=== PATIENT | female | born 1990 | race Caucasian/White ===

== ENCOUNTER 2016-10-26 01:08 | Emergency (ER) | payer OTHER, SELFPAY ==
--- NOTE | 2016-10-26 02:50 | REPUSA ---
CT INTERNAL AUDITORY CANALS CLINICAL HISTORY: Suspected mastoiditis. TECHNIQUE: Multiple axial CT images were obtained through temporal bones without IV contrast material . COMMENTS: The auditory ossicles are within normal limits without evidence of erosion or destruction. There is n o evidence of erosion of the scutum to suggested cholesteatoma. The mastoid air cells and Korner's se ptum appear intact. There is no evidence of fluid. The auditus and antrum are within normal limits. IMPRESSION: Unremarkable, clear mastoid air cells.
[2016-10-26] MEDS ORDERED: CIPROFLOXACIN 500 MG TAB As Ordered ONE (03:16)
--- NOTE | 2016-10-26 03:26 | EDDOCDS ---
Physician Documentation [facility] Name: Susie Barrett Age: 25 yrs Sex: Female : 1990 Arrival Date: 10/26/2016 Time: 01:08 Bed 11 Private MD: Disposition: 10/26/16 03:14 Discharged to Home/Self Care. Impression: Otitis media, unspecified, right ear. - Condition is Stable. - Prescriptions for Cipro 500 mg Oral Tablet - take 1 tablet by ORAL route every 12 hours; 14 tablet. - Medication Reconciliation, Local Pharmacy Hours form. - Follow up: Private Physician; When: Call to arrange an appointment; Reason: Recheck today's complaints. - Problem is new. - Symptoms have improved. Historical: - Allergies: PENICILLINS (Anaphylaxis); Haldol (seizures); - Home Meds: 1. none - PMHx: Anxiety Disorder; - PSHx: D & C; left arm x2; wisdom teeth; Appendectomy; - Social history: Smoking status: Patient uses tobacco products, current every day smoker. No barriers to communication noted, The patient speaks fluent Mexican, Speaks appropriately for age. - Family history: No immediate family members are acutely ill. - : The pt / caregiver states he / she is not on anticoagulants. Home medication list is obtained from the patient. - Exposure Risk Screening:: None identified. 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 4 in. (162.56 cm); Pain 6/10; 01:17 Body Mass Index 28.15 (74.39 kg, 162.56 cm) ko2 MDM: 02:03 Misc Cognos Report Developer Order ordered. cs11 02:14 Misc Cognos Report Developer Order complete. ml3 02:15 CT IAC W/O CONTRAST Ordered. EDMS 02:39 Financial registration complete. hs2 02:58 [facility] Payment Agreement was scanned into [employer] and attached to record. hs2 03:13 Ciprofloxacin 500 mg PO once ordered. cs11 Administered Medications: 03:21 Drug: Ciprofloxacin 500 mg [ciprofloxacin 500 mg tablet (1 tabs)] Route: PO; nn1 Signatures: Dispatcher [employer] ED Tuyet, MayVijayaElis, Maintenance Painter Apprentice Unit ml3 Abdoulaye Alarcon, DO cs11 Brynn Armenta RN RN ko2 Jean Carlos French RN RN nn1 Gwendolyn Hopson, Reg Reg hs2 The chart was reviewed and I authenticate all verbal orders and agree with the evaluation and treatment provided.Attachments: 02:58 [facility] Payment Agreement hs2 MTDD
--- NOTE | 2016-10-26 03:26 | EDDOCDS ---
Nurse's Notes [facility] Name: Susie Barrett Age: 25 yrs Sex: Female : 1990 Arrival Date: 10/26/2016 Time: 01:08 Bed 11 Private MD: Diagnosis: Otitis media, unspecified, right ear Presentation: 10/26 01:11 Presenting complaint: Patient states: weird symptoms the last week. Started with a ko2 tingling feeling in back of throat with trouble swallowing and a bump behind right ear. dizziness started today that makes her sick to stomach. Glands in throat hurt mainly on the left side as well as both ears hurt. Abdominal pain on left side. Pt states most pain is on the left side. As well as her feet are numb and cold. Suicide/Homicide risk assessment- the patient denies having any suicidal and/or homicidal ideations and does not present with any other emotional, behavioral or mental health complaints. 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 Transition of care: patient was not received from another setting of care. 01:11 Acuity: ÁNGEL Level 3 ko2 01:11 Method Of Arrival: Walkin/Carried/Asstd ko2 02:09 Adult Sepsis Screening: The patient does not have new or worsening altered mentation. nn1 Patient's respiratory rate is less than 22. Systolic blood pressure is greater than 100. Patient has a qSOFA score of 0- Negative Sepsis Screen. Triage Assessment: 01:17 General: Appears in no apparent distress. Pain: Location: head, neck and abdomen Pain ko2 currently is 6 out of 10 on a pain scale. HIV screening NA for this visit Offered previously. Neurological: Level of Consciousness is awake, alert. Respiratory: Airway is patent Respiratory effort is even, unlabored. Derm: Skin is normal. 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 none - PMHx: Anxiety Disorder; - PSHx: D & C; left arm x2; wisdom teeth; Appendectomy; - Social history: Smoking status: Patient uses tobacco products, current every day smoker. No barriers to communication noted, The patient speaks fluent Algerian, Speaks appropriately for age. - Family history: No immediate family members are acutely ill. - : The pt / caregiver states he / she is not on anticoagulants. Home medication list is obtained from the patient. - Exposure Risk Screening:: None identified. Screenin:23 Screening information is obtained from the patient. Fall risk: No risks identified. nn1 Assistance ADL's: requires no assistance with activities of daily living. Abuse/DV Screen: The patient / caregiver reports he/she is: not in a situation that causes fear, pain or injury. Nutritional screening: No deficits noted. Advance Directives: There is no active DNR order. home support is adequate. Assessment: 02:06 General: Appears in no apparent distress, comfortable, Behavior is appropriate for age, nn1 cooperative. Pain: Location: neck and head. Neurological: Level of Consciousness is awake, alert, obeys commands, Oriented to person, place, time. EENT: Throat is pink with gag reflex present, Reports Bilateral ear pain that radiates to the neck and into the throat. Reports sore throat causing difficulty swallowing. No drooling or speech deficits noted. . Respiratory: Airway is patent Respiratory effort is even, unlabored, Respiratory pattern is regular, symmetrical. GI: Abdomen is non- distended Bowel sounds present X 4 quads. Abd is soft and non tender X 4 quads. Reports nausea, vomiting. Derm: Skin is pink, warm & dry. 02:10 Pain: Pain currently is 6 out of 10 on a pain scale. Neurological: Reports dizziness, nn1 headache. 03:21 General: Appears in no apparent distress, comfortable, Behavior is appropriate for age, nn1 cooperative. Pain: Location: neck and head Pain currently is 6 out of 10 on a pain scale. Neurological: Level of Consciousness is awake, alert, obeys commands, Oriented to person, place, time. Respiratory: Airway is patent Respiratory effort is even, unlabored, Respiratory pattern is regular, symmetrical. Derm: Skin is pink, warm & dry. Vital Signs: 01:17 BP 138 / 82; Pulse 99; Resp 16; Temp 98.9; Pulse Ox 97% ; Weight 74.39 kg; Height 5 ft. ko2 4 in. (162.56 cm); Pain 6/10; 01:17 Body Mass Index 28.15 (74.39 kg, 162.56 cm) ko2 Vitals: 01:17 Log In Time: October 26, 2016 at 01:08. ko2 ED Course: 01:09 Patient visited by Fabián Bear, Reg. pm4 01:09 Patient moved to Waiting pm4 01:10 Patient moved to Triage 1 ko2 01:14 Triage Initiated ko2 01:22 Cary Faulkner RN is Primary Nurse. ko2 01:22 Patient moved to 11 ko2 01:27 Abdoulaye Alarcon DO is Attending Physician. cs11 01:27 Patient visited by Abdoulaye Alarcon DO. cs11 02:06 Patient visited by Jean Carlos French RN. nn1 02:58 [facility] Payment Agreement was scanned into [employer] and attached to record. hs2 02:59 CT IAC W/O CONTRAST Returned. EDMS 03:05 Patient name changed from Susie\S\L\S\Barrett\S\ to Susie\S\Verna\S\Barrett. EDMS 03:18 Primary Nurse role handed off by Cary Faulkner RN kb5 03:18 Patient visited by Chris Aviles PCA. kb5 03:24 The patient / caregiver is instructed regarding the plan of care and ED course. nn1 03:24 No IV's were initiated during this patient's visit. No procedures done that require nn1 assistance. Administered Medications: 03:21 Drug: Ciprofloxacin 500 mg [ciprofloxacin 500 mg tablet (1 tabs)] Route: PO; nn1 Order Results: Radiology Order: CT IAC W/O CONTRAST Test: CT IAC W/O CONTRAST REASON FOR EXAMINATION: R/O MASTOIDITIS; ; CT INTERNAL AUDITORY CANALS; CLINICAL HISTORY: Suspected mastoiditis.; TECHNIQUE: Multiple axial CT images were obtained through temporal bones without IV contrast material; .; COMMENTS:; The auditory ossicles are within normal limits without evidence of erosion or destruction. There is n; o evidence of erosion of the scutum to suggested cholesteatoma. The mastoid air cells and Korner's se; ptum appear intact. There is no evidence of fluid. The auditus and antrum are within normal limits.; IMPRESSION:; Unremarkable, clear mastoid air cells.; ; Outcome: 03:14 Discharge ordered by Provider. cs11 03:23 Discharge Assessment: Patient awake, alert and oriented x 3. No cognitive and/or nn1 functional deficits noted. Patient verbalized understanding of disposition instructions. patient administered narcotics - no. The following High Risk Discharge criteria are identified: None. Discharged to home ambulatory, with friend. Condition: stable Condition: improved. CT Study completed. Property :Personal belongings accompany Pt. 03:25 Patient left the ED. nn1 Signatures: Dispatcher [employer] EDMS Chris Aviles, CORRECTIONAL CASE MANAGER CORRECTIONAL CASE MANAGER kb5 Abdoulaye Alarcon DO DO cs11 Brynn Armenta,RN RN ko2 Jean Carlos FrenchRN RN nn1 Gwendolyn Hopson, Reg Reg hs2 Fabián Bear, Reg Reg pm4 MTDD
--- NOTE | 2016-10-28 04:26 | EDDOCDS ---
Physician Documentation [facility] Name: Susie Barrett Age: 25 yrs Sex: Female : 1990 Arrival Date: 10/26/2016 Time: 01:08 Bed 11 Private MD: Disposition: 10/26/16 03:14 Discharged to Home/Self Care. Impression: Otitis media, unspecified, right ear. - Condition is Stable. - Prescriptions for Cipro 500 mg Oral Tablet - take 1 tablet by ORAL route every 12 hours; 14 tablet. - Medication Reconciliation, Local Pharmacy Hours form. - Follow up: Private Physician; When: Call to arrange an appointment; Reason: Recheck today's complaints. - Problem is new. - Symptoms have improved. Historical: - Allergies: PENICILLINS (Anaphylaxis); Haldol (seizures); - Home Meds: 1. none - PMHx: Anxiety Disorder; - PSHx: D & C; left arm x2; wisdom teeth; Appendectomy; - Social history: Smoking status: Patient uses tobacco products, current every day smoker. No barriers to communication noted, The patient speaks fluent Ghanaian, Speaks appropriately for age. - Family history: No immediate family members are acutely ill. - : The pt / caregiver states he / she is not on anticoagulants. Home medication list is obtained from the patient. - Exposure Risk Screening:: None identified. 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 4 in. (162.56 cm); Pain 6/10; 03:25 BP 134 / 69; Pulse 84; Resp 18; Temp 100(O); Pulse Ox 98% on R/A; Pain 6/10; nn1 01:17 Body Mass Index 28.15 (74.39 kg, 162.56 cm) ko2 MDM: 02:03 Misc Bale Opener Order ordered. cs11 02:14 Misc Bale Opener Order complete. ml3 02:15 CT IAC W/O CONTRAST Ordered. EDMS 02:39 Financial registration complete. hs2 02:58 [facility] Payment Agreement was scanned into [employer] and attached to record. hs2 03:13 Ciprofloxacin 500 mg PO once ordered. cs11 10/27 13:08 T-Sheet-- Draft Copy was scanned into [employer] and attached to record. gb Administered Medications: 10/26 03:21 Drug: Ciprofloxacin 500 mg [ciprofloxacin 500 mg tablet (1 tabs)] Route: PO; nn1 Signatures: Dispatcher [employer] EDMS Rachele Paulino, Reg Reg gb Jordan Benz, Business Continuity Global Director Unit ml3 Abdoulaye Alarcon, DO cs11 Brynn Armenta,RN RN ko2 Jean Carlos French RN RN nn1 Gwendolyn Hopson, Reg Reg hs2 The chart was reviewed and I authenticate all verbal orders and agree with the evaluation and treatment provided.Attachments: 02:58 [facility] Payment Agreement hs2 10/27 13:08 T-Sheet-- Draft Copy gb Chart Complete MTDD
--- NOTE | 2016-10-28 04:26 | EDDOCDS ---
Nurse's Notes [facility] Name: Susie Barrett Age: 25 yrs Sex: Female : 1990 Arrival Date: 10/26/2016 Time: 01:08 Bed 11 Private MD: Diagnosis: Otitis media, unspecified, right ear Presentation: 10/26 01:11 Presenting complaint: Patient states: weird symptoms the last week. Started with a ko2 tingling feeling in back of throat with trouble swallowing and a bump behind right ear. dizziness started today that makes her sick to stomach. Glands in throat hurt mainly on the left side as well as both ears hurt. Abdominal pain on left side. Pt states most pain is on the left side. As well as her feet are numb and cold. Suicide/Homicide risk assessment- the patient denies having any suicidal and/or homicidal ideations and does not present with any other emotional, behavioral or mental health complaints. Status: Patient is not a tax services manager or dependent. Transition of care: patient was not received from another setting of care. 01:11 Acuity: ÁNGEL Level 3 ko2 01:11 Method Of Arrival: Walkin/Carried/Asstd ko2 02:09 Adult Sepsis Screening: The patient does not have new or worsening altered mentation. nn1 Patient's respiratory rate is less than 22. Systolic blood pressure is greater than 100. Patient has a qSOFA score of 0- Negative Sepsis Screen. Triage Assessment: 01:17 General: Appears in no apparent distress. Pain: Location: head, neck and abdomen Pain ko2 currently is 6 out of 10 on a pain scale. HIV screening NA for this visit Offered previously. Neurological: Level of Consciousness is awake, alert. Respiratory: Airway is patent Respiratory effort is even, unlabored. Derm: Skin is normal. 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 none - PMHx: Anxiety Disorder; - PSHx: D & C; left arm x2; wisdom teeth; Appendectomy; - Social history: Smoking status: Patient uses tobacco products, current every day smoker. No barriers to communication noted, The patient speaks fluent South Korean, Speaks appropriately for age. - Family history: No immediate family members are acutely ill. - : The pt / caregiver states he / she is not on anticoagulants. Home medication list is obtained from the patient. - Exposure Risk Screening:: None identified. Screenin:23 Screening information is obtained from the patient. Fall risk: No risks identified. nn1 Assistance ADL's: requires no assistance with activities of daily living. Abuse/DV Screen: The patient / caregiver reports he/she is: not in a situation that causes fear, pain or injury. Nutritional screening: No deficits noted. Advance Directives: There is no active DNR order. home support is adequate. Assessment: 02:06 General: Appears in no apparent distress, comfortable, Behavior is appropriate for age, nn1 cooperative. Pain: Location: neck and head. Neurological: Level of Consciousness is awake, alert, obeys commands, Oriented to person, place, time. EENT: Throat is pink with gag reflex present, Reports Bilateral ear pain that radiates to the neck and into the throat. Reports sore throat causing difficulty swallowing. No drooling or speech deficits noted. . Respiratory: Airway is patent Respiratory effort is even, unlabored, Respiratory pattern is regular, symmetrical. GI: Abdomen is non- distended Bowel sounds present X 4 quads. Abd is soft and non tender X 4 quads. Reports nausea, vomiting. Derm: Skin is pink, warm & dry. 02:10 Pain: Pain currently is 6 out of 10 on a pain scale. Neurological: Reports dizziness, nn1 headache. 03:21 General: Appears in no apparent distress, comfortable, Behavior is appropriate for age, nn1 cooperative. Pain: Location: neck and head Pain currently is 6 out of 10 on a pain scale. Neurological: Level of Consciousness is awake, alert, obeys commands, Oriented to person, place, time. Respiratory: Airway is patent Respiratory effort is even, unlabored, Respiratory pattern is regular, symmetrical. Derm: Skin is pink, warm & dry. Vital Signs: 01:17 BP 138 / 82; Pulse 99; Resp 16; Temp 98.9; Pulse Ox 97% ; Weight 74.39 kg; Height 5 ft. ko2 4 in. (162.56 cm); Pain 6/10; 03:25 BP 134 / 69; Pulse 84; Resp 18; Temp 100(O); Pulse Ox 98% on R/A; Pain 6/10; nn1 01:17 Body Mass Index 28.15 (74.39 kg, 162.56 cm) ko Vitals: 01:17 Log In Time: October 26, 2016 at 01:08. ko2 ED Course: 01:09 Patient visited by Fabián Bear Reg. pm4 01:09 Patient moved to Waiting pm4 01:10 Patient moved to Triage 1 ko2 01:14 Triage Initiated ko2 01:22 Cary Faulkner RN is Primary Nurse. ko2 01:22 Patient moved to 11 ko2 01:27 Abdoulaye Alarcon DO is Attending Physician. cs11 01:27 Patient visited by Abdoulaye Alarcon DO. cs11 02:06 Patient visited by Jean Carlos French RN. nn1 02:58 [facility] Payment Agreement was scanned into [employer] and attached to record. hs2 02:59 CT IAC W/O CONTRAST Returned. EDMS 03:05 Patient name changed from Susie\S\L\S\Barrett\S\ to Susie\S\Verna\S\Barrett. EDMS 03:18 Primary Nurse role handed off by Cary Faulkner RN kb5 03:18 Patient visited by Chris Aviles PCA. kb5 03:24 The patient / caregiver is instructed regarding the plan of care and ED course. nn1 03:24 No IV's were initiated during this patient's visit. No procedures done that require nn1 assistance. 10/27 13:08 T-Sheet-- Draft Copy was scanned into [employer] and attached to record. gb Administered Medications: 10/26 03:21 Drug: Ciprofloxacin 500 mg [ciprofloxacin 500 mg tablet (1 tabs)] Route: PO; nn1 Order Results: Radiology Order: CT IAC W/O CONTRAST Test: CT IAC W/O CONTRAST REASON FOR EXAMINATION: R/O MASTOIDITIS; ; CT INTERNAL AUDITORY CANALS; CLINICAL HISTORY: Suspected mastoiditis.; TECHNIQUE: Multiple axial CT images were obtained through temporal bones without IV contrast material; .; COMMENTS:; The auditory ossicles are within normal limits without evidence of erosion or destruction. There is n; o evidence of erosion of the scutum to suggested cholesteatoma. The mastoid air cells and Korner's se; ptum appear intact. There is no evidence of fluid. The auditus and antrum are within normal limits.; IMPRESSION:; Unremarkable, clear mastoid air cells.; ; Outcome: 03:14 Discharge ordered by Provider. cs11 03:23 Discharge Assessment: Patient awake, alert and oriented x 3. No cognitive and/or nn1 functional deficits noted. Patient verbalized understanding of disposition instructions. patient administered narcotics - no. The following High Risk Discharge criteria are identified: None. Discharged to home ambulatory, with friend. Condition: stable Condition: improved. CT Study completed. Property :Personal belongings accompany Pt. 03:25 Patient left the ED. nn1 Signatures: Dispatcher [employer] EDMS Rachele Paulino, Reg Reg gb Chris Aviles, SALES AND SERVICE REPRESENTATIVE SALES AND SERVICE REPRESENTATIVE kb5 Abdoulaye Alarcon, DO DO cs11 Brynn ArmentaRN RN ko2 Jean Carlos FrenchRN RN nn1 Gwendolyn Hopson, Reg Reg hs2 Fabián Bear, Reg Reg pm4 Chart Complete [facility]
--- NOTE | 2016-10-28 04:26 | EDDOCDS ---
Physician Documentation [facility] Name: Susie Barrett Age: 25 yrs Sex: Female : 1990 Arrival Date: 10/26/2016 Time: 01:08 Bed 11 Private MD: Disposition: 10/26/16 03:14 Discharged to Home/Self Care. Impression: Otitis media, unspecified, right ear. - Condition is Stable. - Prescriptions for Cipro 500 mg Oral Tablet - take 1 tablet by ORAL route every 12 hours; 14 tablet. - Medication Reconciliation, Local Pharmacy Hours form. - Follow up: Private Physician; When: Call to arrange an appointment; Reason: Recheck today's complaints. - Problem is new. - Symptoms have improved. Historical: - Allergies: PENICILLINS (Anaphylaxis); Haldol (seizures); - Home Meds: 1. none - PMHx: Anxiety Disorder; - PSHx: D & C; left arm x2; wisdom teeth; Appendectomy; - Social history: Smoking status: Patient uses tobacco products, current every day smoker. No barriers to communication noted, The patient speaks fluent Djiboutian, Speaks appropriately for age. - Family history: No immediate family members are acutely ill. - : The pt / caregiver states he / she is not on anticoagulants. Home medication list is obtained from the patient. - Exposure Risk Screening:: None identified. 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 4 in. (162.56 cm); Pain 6/10; 03:25 BP 134 / 69; Pulse 84; Resp 18; Temp 100(O); Pulse Ox 98% on R/A; Pain 6/10; nn1 01:17 Body Mass Index 28.15 (74.39 kg, 162.56 cm) ko2 MDM: 02:03 Misc Sourcing Coordinator Order ordered. cs11 02:14 Misc Sourcing Coordinator Order complete. ml3 02:15 CT IAC W/O CONTRAST Ordered. EDMS 02:39 Financial registration complete. hs2 02:58 [facility] Payment Agreement was scanned into [employer] and attached to record. hs2 03:13 Ciprofloxacin 500 mg PO once ordered. cs11 10/27 13:08 T-Sheet-- Draft Copy was scanned into [employer] and attached to record. gb Administered Medications: 10/26 03:21 Drug: Ciprofloxacin 500 mg [ciprofloxacin 500 mg tablet (1 tabs)] Route: PO; nn1 Signatures: Dispatcher [employer] EDMS Rachele Paulino, Reg Reg gb Jordan Benz, Book Solicitor Unit ml3 Abdoulaye Alarcon, DO cs11 Brynn Armenta,RN RN ko2 Jean Carlos French RN RN nn1 Gwendolyn Hopson, Reg Reg hs2 The chart was reviewed and I authenticate all verbal orders and agree with the evaluation and treatment provided.Attachments: 02:58 [facility] Payment Agreement hs2 10/27 13:08 T-Sheet-- Draft Copy gb Chart Complete MTDD
== END 2016-10-26 03:25 | disposition home or self-care (01) ==
LOC: M ED 01:08
DX: H66.91 Otitis media, unspecified, right ear (principal); F41.9 Anxiety disorder, unspecified; F17.200 Nicotine dependence, unspecified, uncomplicated; Z88.0 Allergy status to penicillin; Z88.8 Allergy status to other drugs, medicaments and biological substances

== ENCOUNTER 2017-10-20 19:17 | Emergency (ER) | payer MEDICAID, OTHER, SELFPAY ==
[2017-10-20] MEDS: NS 1,000 ML IV (20:15)
[2017-10-20] MEDS: GI COCKTAIL 50ML BTL(HYOSCYAMINE/MAALOX/LIDOCAINE VISCOUS)(1:3:1) PO (20:15)
[2017-10-20] MEDS: METOCLOPRAMIDE INJ 10MG/2ML VIAL (J2765) IV (20:15)
[2017-10-20 20:30] LABS: AMORPHOUS SEDIMENT RFX SMALL (NEGATIVE); KETONE, URINE AUTO RFX TRACE mg/dL (NEGATIVE); LEUKOCYTE ESTERASE UR AUTO RFX NEGATIVE (NEGATIVE); MUCUS, URINE RFX LARGE (NEGATIVE); NITRITE, URINE AUTO RFX NEGATIVE (NEGATIVE); RBC, URINE AUTO RFX 5 /HPF (0-3); SPECIFIC GRAVITY UR AUTO RFX 1.027 (1.002-1.035); SQUAM EPITHELIAL CELL UR AURFX 2 /HPF (0-6); WBC, URINE AUTO RFX 1 /HPF (0-3)
[2017-10-20] MEDS ORDERED: GASTROGRAFIN SOLUTION 30ML (Q9963) As Ordered (20:55)
[2017-10-20 20:58] LABS: BASO % 0.3 % (0.0-1.0); EOS # 0.1 10^3/uL (0.0-0.50); EOS % 1.5 % (0.0-3.0); HEMATOCRIT 38.8 % (36.0-47.0); HEMOGLOBIN 13.7 g/dl (12.0-16.0); IMMATURE GRANULOCYTE % 0.2 % (0-3.0); LYMPH # 1.6 10^3/uL (1.5-6.5); LYMPH % 18.2 % (24.0-44.0); MEAN CORPUSCULAR HEMOGLOBIN 31.5 pg (27.0-33.0); MEAN CORPUSCULAR HGB CONC 35.3 g/dl (32.0-36.5); MEAN CORPUSCULAR VOLUME 89.2 fl (80.0-96.0); MONO # 0.6 10^3/uL (0.0-0.8); MONO % 6.9 % (0.0-5.0); NEUTROPHILS # 6.3 10^3/uL (1.8-7.7); NEUTROPHILS % 72.9 % (36.0-66.0); PLATELET COUNT, AUTOMATED 308 10^3/uL (150-450); RED BLOOD COUNT 4.35 10^6/uL (4.00-5.40); RED CELL DISTRIBUTION WIDTH 11.9 % (11.5-14.5); WHITE BLOOD COUNT 8.7 10^3/uL (4.0-10.0)
[2017-10-20] MEDS: GASTROGRAFIN SOLUTION 30ML PO ×2 (21:00→21:30)
[2017-10-20 21:25] LABS: ALBUMIN 4.1 GM/DL (3.2-5.2); ALBUMIN/GLOBULIN RATIO 1.17 (1.00-1.93); ALKALINE PHOSPHATASE 69 U/L (45-117); ALT/SGPT 18 U/L (12-78); AMYLASE 60 U/L (25-115); ANION GAP 4 MEQ/L (8-16); AST/SGOT 12 U/L (7-37); BILIRUBIN,DIRECT 0.1 MG/DL (0.0-0.2); BILIRUBIN,TOTAL 0.5 MG/DL (0.2-1.0); BLOOD UREA NITROGEN 14 MG/DL (7-18); C REACTIVE PROTEIN QUANTITATIV 0.61 MG/DL (0.00-0.30); CALCIUM LEVEL 9.3 MG/DL (8.5-10.1); CARBON DIOXIDE LEVEL 30 MEQ/L (21-32); CHLORIDE LEVEL 107 MEQ/L (98-107); CREATININE FOR GFR 0.78 MG/DL (0.55-1.30); GAMMA GLUTAMYLTRANSPEPTIDASE 27 U/L (5-55); GLOMERULAR FILTRATION RATE > 60.0 (>60); GLUCOSE, FASTING 107 MG/DL (70-100); LIPASE 123 U/L (73-393); POTASSIUM SERUM 3.7 MEQ/L (3.5-5.1); SODIUM LEVEL 141 MEQ/L (136-145); TOTAL PROTEIN 7.6 GM/DL (6.4-8.2)
[2017-10-20] MEDS ORDERED: ISOVUE-370 76% 100ML VIAL (Q9967) As Ordered (22:16)
== END 2017-10-21 00:15 | disposition home or self-care (01) ==
LOC: M ED 10-21 00:15
DX: R10.10 Upper abdominal pain, unspecified (principal); R11.2 Nausea with vomiting, unspecified; F41.9 Anxiety disorder, unspecified; F17.200 Nicotine dependence, unspecified, uncomplicated; Z79.899 Other long term (current) drug therapy; Z91.030 Bee allergy status; Z88.0 Allergy status to penicillin; Z88.8 Allergy status to other drugs, medicaments and biological substances
CPT/HCPCS: Q9967

== ENCOUNTER 2018-04-12 01:04 | Emergency (ER) | payer MEDICAID, OTHER, SELFPAY | END 2018-04-12 03:08 | disposition left against medical advice (07) | LOC: M ED 01:04 | DX: J02.9 Acute pharyngitis, unspecified (principal); Z72.0 Tobacco use; Z53.21 Procedure and treatment not carried out due to patient leaving prior to being seen by health care provider; Z79.899 Other long term (current) drug therapy; Z91.030 Bee allergy status; Z88.0 Allergy status to penicillin; Z88.8 Allergy status to other drugs, medicaments and biological substances | CPT/HCPCS: 87880 ==

== ENCOUNTER 2018-08-31 17:06 | Emergency (ER) | payer OTHER, MEDICAID ==
[2018-08-31 18:26] LABS: BASO % 0.5 % (0.0-1.0); EOS # 0.1 10^3/uL (0.0-0.50); EOS % 1.1 % (0.0-3.0); HEMATOCRIT 39.3 % (36.0-47.0); IMMATURE GRANULOCYTE % 0.3 % (0-3.0); LYMPH # 2.2 10^3/uL (1.5-6.5); LYMPH % 35.1 % (24.0-44.0); MEAN CORPUSCULAR HEMOGLOBIN 31.7 pg (27.0-33.0); MEAN CORPUSCULAR HGB CONC 35.6 g/dl (32.0-36.5); MEAN CORPUSCULAR VOLUME 88.9 fl (80.0-96.0); MONO # 0.4 10^3/uL (0.0-0.8); NEUTROPHILS # 3.6 10^3/uL (1.8-7.7); PLATELET COUNT, AUTOMATED 335 10^3/uL (150-450); RED BLOOD COUNT 4.42 10^6/uL (4.00-5.40); RED CELL DISTRIBUTION WIDTH 11.7 % (11.5-14.5); WHITE BLOOD COUNT 6.4 10^3/uL (4.0-10.0)
[2018-08-31 18:33] LABS: CONTROL LINE UCG INT CTR LINE PRESENT; URINE PREG TEST NEGATIVE (NEGATIVE)
[2018-08-31 18:42] LABS: KETONE, URINE AUTO RFX NEGATIVE (NEGATIVE); LEUKOCYTE ESTERASE UR AUTO RFX NEGATIVE (NEGATIVE); MUCUS, URINE RFX SMALL (NEGATIVE); NITRITE, URINE AUTO RFX NEGATIVE (NEGATIVE); RBC, URINE AUTO RFX 2 /HPF (0-3); SPECIFIC GRAVITY UR AUTO RFX 1.019 (1.002-1.035); SQUAM EPITHELIAL CELL UR AURFX 1 /HPF (0-6); WBC, URINE AUTO RFX 1 /HPF (0-3)
[2018-08-31 18:55] LABS: ALBUMIN 4.3 GM/DL (3.2-5.2); ALBUMIN/GLOBULIN RATIO 1.19 (1.00-1.93); ALKALINE PHOSPHATASE 66 U/L (45-117); ALT/SGPT 30 U/L (12-78); ANION GAP 8 MEQ/L (8-16); AST/SGOT 20 U/L (7-37); BILIRUBIN,DIRECT 0.1 MG/DL (0.0-0.2); BILIRUBIN,TOTAL 0.4 MG/DL (0.2-1.0); BLOOD UREA NITROGEN 12 MG/DL (7-18); CARBON DIOXIDE LEVEL 28 MEQ/L (21-32); CHLORIDE LEVEL 103 MEQ/L (98-107); CREATININE FOR GFR 0.68 MG/DL (0.55-1.30); GLOMERULAR FILTRATION RATE > 60.0 (>60); GLUCOSE, FASTING 93 MG/DL (70-100); LIPASE 85 U/L (73-393); SODIUM LEVEL 139 MEQ/L (136-145); TOTAL PROTEIN 7.9 GM/DL (6.4-8.2)
[2018-08-31] MEDS: ONDANSETRON 4MG/2ML VIAL (J2405) IV (19:31)
[2018-08-31] MEDS: GI COCKTAIL 50ML BTL(HYOSCYAMINE/MAALOX/LIDOCAINE VISCOUS)(1:3:1) PO (19:31)
[2018-08-31] MEDS: NS 500 ML IV (19:34)
[2018-08-31] MEDS: PANTOPRAZOLE 40MG INJ (PROTONIX) (C9113) IV (19:34)
== END 2018-08-31 20:17 | disposition home or self-care (01) ==
LOC: M ED 17:06
DX: K80.20 Calculus of gallbladder without cholecystitis without obstruction (principal); Z87.891 Personal history of nicotine dependence; K21.9 Gastro-esophageal reflux disease without esophagitis
CPT/HCPCS: C9113

== ENCOUNTER 2019-08-12 13:44 | Emergency (ER) | payer OTHER ==
[~2019-08-12] VITALS: Ht 162.6 cm; Wt 81.1 kg
[2019-08-12 13:44] VITALS: BP 144/70
[~2019-08-12 13:44] MED LIST: CARA1TAB6 PO; COLA100C5 PO; FOLI800T PO; MAGICMW SS; MULT1CHW PO; PANT40TA3 PO; REGL10TA6 PO; ZOFR4TAB14 PO
[2019-08-12 14:24] LABS: BASO % 0.3 % (0.0-1.0); EOS # 0.1 10^3/uL (0.0-0.5); EOS % 0.9 % (0.0-3.0); HEMATOCRIT 45.6 % (36.0-47.0); LYMPH # 2.5 10^3/uL (1.5-5.0); MEAN CORPUSCULAR HEMOGLOBIN 31.1 pg (27.0-33.0); MEAN CORPUSCULAR HGB CONC 32.9 g/dl (32.0-36.5); MEAN CORPUSCULAR VOLUME 94.6 fl (80.0-96.0); MONO # 0.4 10^3/uL (0.0-0.8); MONO % 4.5 % (0.0-5.0); NEUTROPHILS # 6.1 10^3/uL (1.5-8.5); NEUTROPHILS % 66.9 % (36.0-66.0); PLATELET COUNT, AUTOMATED 372 10^3/uL (150-450); RED BLOOD COUNT 4.82 10^6/uL (4.00-5.40); WHITE BLOOD COUNT 9.1 10^3/uL (4.0-10.0)
[2019-08-12 14:35] LABS: INR 1.1; PARTIAL THROMBOPLASTIN TIME 28.9 SECONDS (25.0-38.4); PROTHROMBIN TIME 13.9 SECONDS (11.8-14.0)
[2019-08-12 14:53] LABS: ALBUMIN 4.3 GM/DL (3.2-5.2); ALT/SGPT 28 U/L (12-78); BILIRUBIN,DIRECT 0.1 MG/DL (0.0-0.2); BILIRUBIN,TOTAL 0.4 MG/DL (0.2-1.0); BLOOD UREA NITROGEN 10 MG/DL (7-18); CALCIUM LEVEL 9.3 MG/DL (8.5-10.1); CARBON DIOXIDE LEVEL 32 MEQ/L (21-32); CHLORIDE LEVEL 106 MEQ/L (98-107); CREATININE FOR GFR 0.77 MG/DL (0.55-1.30); GLOMERULAR FILTRATION RATE > 60.0 (>60); GLUCOSE, FASTING 96 MG/DL (70-100); LIPASE 158 U/L (73-393); POTASSIUM SERUM 3.8 MEQ/L (3.5-5.1); SODIUM LEVEL 142 MEQ/L (136-145)
[2019-08-12 14:58] LABS: HCG, SERUM QUALITATIVE NEGATIVE (NEGATIVE)
== END 2019-08-12 15:04 | disposition left against medical advice (07) ==
LOC: M ED 13:44
DX: R10.9 Unspecified abdominal pain (principal); R11.10 Vomiting, unspecified; I10 Essential (primary) hypertension; K21.9 Gastro-esophageal reflux disease without esophagitis; K27.9 Peptic ulcer, site unspecified, unspecified as acute or chronic, without hemorrhage or perforation; Z87.442 Personal history of urinary calculi; F17.200 Nicotine dependence, unspecified, uncomplicated; Z88.0 Allergy status to penicillin; Z88.8 Allergy status to other drugs, medicaments and biological substances; Z91.030 Bee allergy status; Z53.21 Procedure and treatment not carried out due to patient leaving prior to being seen by health care provider

== ENCOUNTER → 2019-10-10 | Outpatient (CLI) | payer OTHER ==
--- NOTE | 2019-10-11 04:29 | REP ---
Clinical: Pelvic pain. Technique: Transabdominal pelvic ultrasound followed by transvaginal examination for better evaluation of the endometrium and adnexa with color Doppler evaluation of the ovaries. Findings: Bladder is normal and measures 4.1 x 4.3 x 2.2 cm. Normal anteverted uterus measures 8.9 x 3.7 x 5.2 cm. Endometrial complex measures 6.9 mm thickness. The right ovary is normal in appearance and vascularity without torsion and measures 2.7 x 2.2 x 1.2 cm (RI 0.56). Left ovary is not visualized. No pelvic fluid or adnexal mass lesion. Impression: Normal uterus and right ovary. Left ovary not visualized. Electronically Signed by Otto Russo MD 10/11/2019 04:20 A
== END ==
LOC: M RAD 15:32
PROVIDERS: ATTEND Physician Assistant
DX: R10.2 Pelvic and perineal pain (principal)

== ENCOUNTER → 2019-10-23 | Outpatient (CLI) | payer OTHER | LOC: M LAB 15:46 | DX: Z00.00 Encounter for general adult medical examination without abnormal findings (principal) ==

== ENCOUNTER 2020-02-24 15:18 | Emergency (ER) | payer OTHER ==
[~2020-02-24] VITALS: Ht 162.6 cm; Wt 84.2 kg
[2020-02-24 16:15] VITALS: BP 128/86
[2020-02-24] MEDS ORDERED: PRED20TA PO (16:38)
[2020-02-24] MEDS ORDERED: EPIP0.3I2 IM (16:38)
[2020-02-24] MEDS ORDERED: diphenhydrAMINE 25MG CAP PO ONE (16:45)
[2020-02-24] MEDS ORDERED: predniSONE 20 MG TAB PO ONE (16:45)
== END 2020-02-24 16:46 | disposition home or self-care (01) ==
LOC: M ED 15:18
DX: T63.441A Toxic effect of venom of bees, accidental (unintentional), initial encounter (principal); Y92.098 Other place in other non-institutional residence as the place of occurrence of the external cause; F17.200 Nicotine dependence, unspecified, uncomplicated; Z91.030 Bee allergy status; Z88.0 Allergy status to penicillin; Z88.8 Allergy status to other drugs, medicaments and biological substances

== ENCOUNTER → 2020-09-15 | Outpatient (CLI) | payer OTHER ==
[~2020-09-15] MED LIST changes: +EPIP0.3I2 IM; +PANT40TA29 PO; -PANT40TA3 PO; +PRED20TA PO
[2020-09-15 18:55] LABS: PARTIAL THROMBOPLASTIN TIME 29.7 SECONDS (24.2-38.5); PROTHROMBIN TIME 13.4 SECONDS (12.5-14.3)
[2020-09-15 18:58] LABS: ALBUMIN 4.4 GM/DL (3.2-5.2); ALT/SGPT 43 U/L (12-78); BILIRUBIN,TOTAL 0.2 MG/DL (0.2-1.0); BLOOD UREA NITROGEN 8 MG/DL (7-18); CARBON DIOXIDE LEVEL 27 MEQ/L (21-32); CHLORIDE LEVEL 107 MEQ/L (98-107); CREATININE FOR GFR 0.72 MG/DL (0.55-1.30); FREE T4 0.97 NG/DL (0.76-1.46); GLOMERULAR FILTRATION RATE > 60.0 (>60); GLUCOSE, FASTING 80 MG/DL (70-100); HCG, SERUM QUANTITATIVE 13 MIU/ML; POTASSIUM SERUM 4.3 MEQ/L (3.5-5.1); SODIUM LEVEL 138 MEQ/L (136-145)
== END ==
LOC: M LAB 16:24
PROVIDERS: ATTEND Nurse Practitioner Family
DX: N91.2 Amenorrhea, unspecified (principal); D68.51 Activated protein C resistance; D32.9 Benign neoplasm of meninges, unspecified; M32.9 Systemic lupus erythematosus, unspecified

== ENCOUNTER → 2021-03-27 | Outpatient (CLI) | payer OTHER ==
[~2021-03-27] MED LIST changes: +FOLI0.8T3 PO; -FOLI800T PO
[2021-03-27 15:57] LABS: FREE T4 0.88 NG/DL (0.76-1.46); THYROID STIMULATING HORMONE 0.791 uIU/ML (0.358-3.740)
[2021-03-27 15:59] LABS: PROGESTERONE 0.65 NG/ML
[2021-03-27 16:00] LABS: ESTRADIOL 22.9 PG/ML; FOLLICLE STIMULATING HORMONE 9.8 mIU/mL; LUTEINIZING HORMONE 0.9 mIU/mL
== END ==
LOC: M PLALAB 12:39
PROVIDERS: ATTEND Obstetrics & Gynecology
DX: N96 Recurrent pregnancy loss (principal)

== ENCOUNTER → 2021-08-04 | Outpatient (CLI) | payer OTHER | LOC: M PLALAB 13:12 | PROVIDERS: ATTEND Obstetrics & Gynecology | DX: N97.0 Female infertility associated with anovulation (principal) ==

== ENCOUNTER 2022-03-09 14:24 | Day surgery (SDC) | payer OTHER ==
[~2022-03-09] VITALS: Ht 162.6 cm; Wt 89.1 kg
[2022-03-09 16:52] LABS: HEMOGLOBIN 12.7 g/dl (12.0-15.5); MEAN CORPUSCULAR HEMOGLOBIN 31.1 pg (27.0-33.0); MEAN CORPUSCULAR HGB CONC 34.3 g/dl (32.0-36.5); MEAN CORPUSCULAR VOLUME 90.5 fl (80.0-96.0); PLATELET COUNT, AUTOMATED 383 10^3/uL (150-450); RED BLOOD COUNT 4.09 10^6/uL (4.00-5.40); WHITE BLOOD COUNT 10.9 10^3/uL (4.0-10.0)
[2022-03-09 17:28] LABS: RSV AMPLIFICATION NEGATIVE (NEGATIVE)
[2022-03-09] MEDS ORDERED: MORPHINE 4 MG/ML 1ML VIAL/SYRINGE IV ONE (18:10)
[2022-03-09] MEDS ORDERED: MORPHINE 4 MG/ML 1ML VIAL/SYRINGE As Ordered ONE (18:11)
[2022-03-09] MEDS ORDERED: EPIN0.3I11 IM (18:31)
[2022-03-09] MEDS ORDERED: HOME MED LIST COMPLETE! XX SCH (18:35)
[2022-03-09] MEDS ORDERED: BUPIVACAINE HCL 0.25% 30ML VIAL As Ordered ONE (18:41)
[2022-03-09] MEDS ORDERED: METOCLOPRAMIDE INJ 10MG/2ML VIAL (J2765 PER 1) As Ordered ONE (18:50)
[2022-03-09] MEDS ORDERED: ONDANSETRON 4MG/2ML VIAL As Ordered ONE (18:50)
[2022-03-09] MEDS ORDERED: dexameTHASONE 4 MG/ML 1ML VIAL (J1100 PER 1MG) As Ordered ONE (18:50)
[2022-03-09] MEDS ORDERED: SUGAMMADEX SODIUM 500 MG/5 ML VIAL (BRIDION) As Ordered ONE (18:50)
[2022-03-09] MEDS ORDERED: MIDAZOLAM INJ 2MG/2ML VIAL (J2250 PER 1MG) As Ordered ONE (18:50)
[2022-03-09] MEDS ORDERED: LIDOCAINE 2% INJ 100 MG/5 ML SYRINGE As Ordered ONE (18:50)
[2022-03-09] MEDS ORDERED: fentaNYL 100 MCG/2 ML INJECTION As Ordered ONE (18:50)
[2022-03-09] MEDS ORDERED: propofoL 200 MG/20 ML VIAL As Ordered ONE (18:50)
[2022-03-09] MEDS ORDERED: KETOROLAC 60MG 2ML VIAL As Ordered ONE (18:50)
[2022-03-09] MEDS ORDERED: ROCURONIUM BROMIDE 50 MG/5 ML VIAL As Ordered ONE (18:50)
[2022-03-09] MEDS ORDERED: ONDANSETRON 4MG/2ML VIAL IV PRN (20:50)
[2022-03-09] MEDS ORDERED: fentaNYL 100 MCG/2 ML INJECTION IV PRN (20:50)
[2022-03-09] MEDS ORDERED: LR 1,000 ML IV SCH (20:50)
[2022-03-09] MEDS ORDERED: oxyCODONE 5MG TAB PO PRN (20:50)
[2022-03-09] MEDS ORDERED: HYDROMORPHONE HCL 0.5 MG/ 0.5 ML SYRINGE (J1170 PER 1) IV PRN (20:50)
[2022-03-09] MEDS ORDERED: PERCOCET 5MG/325MG TAB PO PRN (21:10)
[2022-03-09 22:10] VITALS: BP 135/82
[2022-03-09] MEDS ORDERED: PERCOCET PO (22:26)
[2022-03-09] MEDS ORDERED: IBUP80TA PO (22:26)
[2022-03-10] MEDS ORDERED: KETOROLAC 30 MG/ML 1ML VIAL IV SCH (01:00)
== END 2022-03-09 22:17 | disposition home or self-care (01) ==
LOC: M ED 14:24 → M SDC 18:31
PROVIDERS: ATTEND Obstetrics & Gynecology
DX: O00.90 Unspecified ectopic pregnancy without intrauterine pregnancy (principal); Z88.0 Allergy status to penicillin; Z88.8 Allergy status to other drugs, medicaments and biological substances; Z91.030 Bee allergy status; F17.210 Nicotine dependence, cigarettes, uncomplicated
CPT/HCPCS: 59151; 76801; 76817; 84702; 85027; 86850; 86900; 86901; 87631; 88305; 93976; 96374; 99284; J1100; J1885; J2250; J2270; J2405; J2765; J3010

== ENCOUNTER → 2022-06-14 | Outpatient (REF) | payer OTHER ==
[~2022-06-14] MED LIST changes: +EPIN0.3I11 IM; +IBUP80TA PO; +PERCOCET PO
== END ==
LOC: M PLALAB 16:08
PROVIDERS: ATTEND Obstetrics & Gynecology
DX: Z12.4 Encounter for screening for malignant neoplasm of cervix (principal)
CPT/HCPCS: G0123; G0463

== ENCOUNTER 2022-09-17 13:03 | Emergency (ER) | payer OTHER ==
[~2022-09-17] VITALS: Ht 165.1 cm; Wt 89.2 kg
[2022-09-17] MEDS ORDERED: ONDA4TAB6 PO (15:51)
[2022-09-17 16:06] LABS: BASO % 0.4 % (0.0-1.0); EOS # 0.1 10^3/uL (0.0-0.5); EOS % 1.6 % (0.0-3.0); HEMATOCRIT 41.6 % (36.0-47.0); HEMOGLOBIN 13.9 g/dl (12.0-15.5); LYMPH # 2.2 10^3/uL (1.5-5.0); LYMPH % 32.6 % (24.0-44.0); MEAN CORPUSCULAR HGB CONC 33.4 g/dl (32.0-36.5); MEAN CORPUSCULAR VOLUME 92.9 fl (80.0-96.0); MONO # 0.4 10^3/uL (0.0-0.8); MONO % 5.2 % (2.0-8.0); NEUTROPHILS % 59.9 % (36.0-66.0); PLATELET COUNT, AUTOMATED 320 10^3/uL (150-450); RED BLOOD COUNT 4.48 10^6/uL (4.00-5.40); WHITE BLOOD COUNT 6.7 10^3/uL (4.0-10.0)
[2022-09-17 16:10] LABS: INR 0.97; PROTHROMBIN TIME 13.1 SECONDS (12.5-14.5)
[2022-09-17 16:17] LABS: PARTIAL THROMBOPLASTIN TIME 29.1 SECONDS (24.8-34.2)
[2022-09-17 16:23] LABS: ALBUMIN 4.3 G/DL (3.2-5.2); ALKALINE PHOSPHATASE 69 U/L (46-116); ALT/SGPT 37 U/L (7.0-40); AST/SGOT 28 U/L (<34); BILIRUBIN,TOTAL 0.6 MG/DL (0.3-1.2); BLOOD UREA NITROGEN 14 MG/DL (9-23); CALCIUM LEVEL 9.4 MG/DL (8.5-10.1); CARBON DIOXIDE LEVEL 26 MMOL/L (20-31); CHLORIDE LEVEL 104 MMOL/L (98-107); CREATININE FOR GFR 0.69 MG/DL (0.55-1.30); GLOMERULAR FILTRATION RATE > 60.0 (>60); GLUCOSE, FASTING 88 MG/DL (60-100); POTASSIUM SERUM 4.2 MMOL/L (3.5-5.1); SODIUM LEVEL 139 MMOL/L (136-145); TOTAL PROTEIN 7.7 G/DL (5.7-8.2)
[2022-09-17 16:30] LABS: HCG, SERUM QUALITATIVE NEGATIVE (NEGATIVE)
[2022-09-17] MEDS ORDERED: GI COCKTAIL 50ML BTL(HYOSCYAMINE/MAALOX/LIDOCAINE VISCOUS)(1:3:1) PO ONE (16:50)
[2022-09-17] MEDS ORDERED: PANTOPRAZOLE 40MG VIAL IV ONE (16:50)
[2022-09-17] MEDS ORDERED: ONDANSETRON 4MG 2ML VIAL IV ONE (16:50)
[2022-09-17] MEDS ORDERED: NS 1,000 ML IV ONE (16:50)
[2022-09-17] MEDS ORDERED: SUCRALFATE 1 GM TAB PO ONE (16:50)
[2022-09-17] MEDS ORDERED: FAMOTIDINE 20MG/2ML VIAL IVP ONE (16:50)
[2022-09-17] MEDS ORDERED: GASTROGRAFIN SOLUTION 30ML As Ordered ONE (17:21)
[2022-09-17 17:34] LABS: LIPASE 27 U/L (12-53)
[2022-09-17] MEDS: GASTROGRAFIN SOLUTION 30ML PO SCH ×2 (17:38→18:11)
[2022-09-17] MEDS ORDERED: ISOVUE-370 76% 100ML VIAL As Ordered ONE (18:53)
[2022-09-17] MEDS ORDERED: FLEEENE12 PR (20:08)
[2022-09-17] MEDS ORDERED: OMEP1CAP73 PO (20:08)
[2022-09-17] MEDS ORDERED: CARA1TAB6 PO (20:08)
[2022-09-17] MEDS ORDERED: GLYC1SUP37 PR (20:08)
[2022-09-17 20:19] VITALS: BP 124/80
== END 2022-09-17 20:23 | disposition home or self-care (01) ==
LOC: M ED 13:03
DX: R19.5 Other fecal abnormalities (principal); R10.9 Unspecified abdominal pain; K21.9 Gastro-esophageal reflux disease without esophagitis; Z87.11 Personal history of peptic ulcer disease; Z88.0 Allergy status to penicillin; Z88.8 Allergy status to other drugs, medicaments and biological substances; Z91.030 Bee allergy status
CPT/HCPCS: 36415; 74177; 80053; 83690; 84703; 85025; 85610; 85730; 96361; 96374; 96375; 99284; C9113; J2405

== ENCOUNTER → 2022-12-07 | Outpatient (CLI) | payer OTHER ==
[~2022-12-07] MED LIST changes: +FLEEENE12 PR; +GLYC1SUP37 PR; +OMEP1CAP73 PO; +ONDA4TAB6 PO
== END ==
LOC: M PLALAB 14:56
PROVIDERS: ATTEND Obstetrics & Gynecology
DX: N96 Recurrent pregnancy loss (principal)

== ENCOUNTER → 2022-12-08 | Outpatient (REF) | payer OTHER | LOC: M WUC 22:17 | PROVIDERS: ATTEND Student in an Organized Health Care Education/Training Program | DX: J02.9 Acute pharyngitis, unspecified (principal) ==

== ENCOUNTER → 2023-09-06 | Outpatient (CLI) | payer OTHER ==
[2023-09-06 11:04] LABS: HCG, SERUM QUANTITATIVE 26.6 MIU/ML (<4.2)
[2023-09-06 11:07] LABS: PROGESTERONE 3.25 NG/ML
[2023-09-06 11:09] LABS: ESTRADIOL 98.6 PG/ML; THYROID STIMULATING HORMONE 0.955 uIU/ML (0.55-4.78)
== END ==
LOC: M LAB 10:06
PROVIDERS: ATTEND Obstetrics & Gynecology Reproductive Endocrinology
DX: Z32.00 Encounter for pregnancy test, result unknown (principal)

== ENCOUNTER → 2023-09-13 | Outpatient (CLI) | payer OTHER | LOC: M LAB 10:05 | PROVIDERS: ATTEND Obstetrics & Gynecology | DX: Z34.91 Encounter for supervision of normal pregnancy, unspecified, first trimester (principal) ==

== ENCOUNTER 2023-09-17 10:56 | Emergency (ER) | payer OTHER ==
[~2023-09-17] VITALS: Ht 165.1 cm; Wt 89.6 kg
[2023-09-17 10:58] VITALS: TEMP 97.5
[2023-09-17] MEDS ORDERED: METF-839 PO (11:08)
[2023-09-17 12:30] LABS: BASO % 0.3 % (0.0-1.0); EOS # 0.1 10^3/uL (0.0-0.5); EOS % 1.4 % (0.0-3.0); HEMATOCRIT 40.2 % (36.0-47.0); HEMOGLOBIN 13.9 g/dl (12.0-15.5); LYMPH # 2.1 10^3/uL (1.5-5.0); LYMPH % 30.3 % (24.0-44.0); MEAN CORPUSCULAR HGB CONC 34.6 g/dl (32.0-36.5); MEAN CORPUSCULAR VOLUME 89.7 fl (80.0-96.0); MONO # 0.4 10^3/uL (0.0-0.8); MONO % 5.3 % (2.0-8.0); NEUTROPHILS # 4.4 10^3/uL (1.5-8.5); NEUTROPHILS % 62.4 % (36.0-66.0); PLATELET COUNT, AUTOMATED 359 10^3/uL (150-450); RED BLOOD COUNT 4.48 10^6/uL (4.00-5.40)
[2023-09-17 12:43] LABS: INR 1.06; PROTHROMBIN TIME 13.5 SECONDS (12.5-14.5)
[2023-09-17 12:44] LABS: PARTIAL THROMBOPLASTIN TIME 28.8 SECONDS (24.8-34.2)
[2023-09-17 13:01] LABS: LIPASE 28 U/L (12-53)
[2023-09-17 13:03] LABS: ALBUMIN 4.4 G/DL (3.2-5.2); ALKALINE PHOSPHATASE 71 U/L (46-116); ALT/SGPT 34 U/L (7.0-40); AST/SGOT 15 U/L (<34); BILIRUBIN,DIRECT 0.2 MG/DL (<0.4); BILIRUBIN,TOTAL 0.5 MG/DL (0.3-1.2); BLOOD UREA NITROGEN 12 MG/DL (9-23); CALCIUM LEVEL 9.2 MG/DL (8.5-10.1); CARBON DIOXIDE LEVEL 27 MMOL/L (20-31); CHLORIDE LEVEL 107 MMOL/L (98-107); CREATININE FOR GFR 0.62 MG/DL (0.55-1.30); GLOMERULAR FILTRATION RATE > 60.0 (>60); GLUCOSE, FASTING 96 MG/DL (60-100); POTASSIUM SERUM 4.2 MMOL/L (3.5-5.1); SODIUM LEVEL 141 MMOL/L (136-145); TOTAL PROTEIN 7.7 G/DL (5.7-8.2)
[2023-09-17 13:05] LABS: HCG, SERUM QUALITATIVE POSITIVE (NEGATIVE)
[2023-09-17] MEDS ORDERED: PANTOPRAZOLE 40MG VIAL IV ONE (13:30)
[2023-09-17] MEDS ORDERED: MAALOX 30 ML SUSP *UDC PO ONE (13:30)
[2023-09-17 14:03] LABS: HCG, SERUM QUANTITATIVE 31.8 MIU/ML (<4.2)
[2023-09-17] MEDS ORDERED: NS 1,000 ML IV ONE (14:30)
[2023-09-17] MEDS ORDERED: SUCR1SS PO (15:00)
[2023-09-17] MEDS ORDERED: PROT1TAB2 PO (15:01)
[2023-09-17 15:30] VITALS: BP 107/60; O2SAT 98
== END 2023-09-17 15:45 | disposition home or self-care (01) ==
LOC: M ED 10:56
DX: O03.4 Incomplete spontaneous abortion without complication (principal); K92.0 Hematemesis; K27.9 Peptic ulcer, site unspecified, unspecified as acute or chronic, without hemorrhage or perforation; Z79.84 Long term (current) use of oral hypoglycemic drugs; Z79.899 Other long term (current) drug therapy; Z79.810 Long term (current) use of selective estrogen receptor modulators (SERMs); Z88.0 Allergy status to penicillin; Z91.030 Bee allergy status; Z88.8 Allergy status to other drugs, medicaments and biological substances
CPT/HCPCS: 76801; 76817; 80048; 80076; 83605; 83690; 84702; 84703; 85025; 85610; 85730; 86850; 86900; 86901; 93976; 96374; 99283; C9113

== ENCOUNTER → 2023-11-26 | Outpatient (CLI) | payer OTHER ==
[~2023-11-26] MED LIST changes: +METF-839 PO; +PROT1TAB2 PO; +SUCR1SS PO
== END ==
LOC: M LAB 13:05
PROVIDERS: ATTEND Obstetrics & Gynecology Obstetrics
DX: N96 Recurrent pregnancy loss (principal)

== ENCOUNTER 2024-04-17 14:10 | Emergency (ER) | payer OTHER ==
[~2024-04-17 14:10] MED LIST changes: +ONDA-282 PO; -ONDA4TAB6 PO
[2024-04-17 14:55] LABS: BASO % 0.4 % (0.0-1.0); EOS # 0.1 10^3/uL (0.0-0.5); HEMATOCRIT 38.8 % (36.0-47.0); HEMOGLOBIN 13.6 g/dl (12.0-15.5); LYMPH # 1.8 10^3/uL (1.5-5.0); LYMPH % 26.4 % (24.0-44.0); MEAN CORPUSCULAR HEMOGLOBIN 31.4 pg (27.0-33.0); MEAN CORPUSCULAR HGB CONC 35.1 g/dl (32.0-36.5); MEAN CORPUSCULAR VOLUME 89.6 fl (80.0-96.0); MONO # 0.3 10^3/uL (0.0-0.8); MONO % 4.7 % (2.0-8.0); NEUTROPHILS # 4.6 10^3/uL (1.5-8.5); NEUTROPHILS % 67.2 % (36.0-66.0); PLATELET COUNT, AUTOMATED 344 10^3/uL (150-450); RED BLOOD COUNT 4.33 10^6/uL (4.00-5.40); WHITE BLOOD COUNT 6.8 10^3/uL (4.0-10.0)
[2024-04-17 15:16] LABS: CK-MB VALUE MASS < 1.0 NG/ML (<3.6)
[2024-04-17 15:17] LABS: LIPASE 37 U/L (12-53)
[2024-04-17 15:18] LABS: CPK CREATINE PHOSPHOKINASE 68 U/L (34-145); MB/CK RELATIVE INDEX 1.47 (< OR =4)
[2024-04-17 15:19] LABS: ALBUMIN 3.9 G/DL (3.2-5.2); ALKALINE PHOSPHATASE 68 U/L (46-116); ALT/SGPT 32 U/L (7.0-40); AST/SGOT 12 U/L (<34); BILIRUBIN,DIRECT 0.2 MG/DL (<0.4); BILIRUBIN,TOTAL 0.6 MG/DL (0.3-1.2); BLOOD UREA NITROGEN 12 MG/DL (9-23); CALCIUM LEVEL 8.8 MG/DL (8.5-10.1); CARBON DIOXIDE LEVEL 24 MMOL/L (20-31); CHLORIDE LEVEL 108 MMOL/L (98-107); CREATININE FOR GFR 0.63 MG/DL (0.55-1.30); GLOMERULAR FILTRATION RATE > 60.0 (>60); GLUCOSE, FASTING 98 MG/DL (60-100); POTASSIUM SERUM 3.8 MMOL/L (3.5-5.1); SODIUM LEVEL 140 MMOL/L (136-145); TOTAL PROTEIN 7.2 G/DL (5.7-8.2)
[2024-04-17 15:22] LABS: HCG, SERUM QUALITATIVE NEGATIVE (NEGATIVE)
[2024-04-17] MEDS: PANTOPRAZOLE 40MG VIAL IV ONE (15:23)
[2024-04-17] MEDS: NS 1,000 ML IV SCH (15:23)
[2024-04-17] MEDS: MAALOX 30 ML SUSP *UDC PO ONE (15:30)
[2024-04-17] MEDS ORDERED: ISOVUE-370 76% 100ML VIAL As Ordered ONE (15:49)
[2024-04-17 16:32] LABS: CK-MB VALUE MASS < 1.0 NG/ML (<3.6)
[2024-04-17 16:40] VITALS: O2SAT 97
[2024-04-17 16:43] LABS: CPK CREATINE PHOSPHOKINASE 74 U/L (34-145); MB/CK RELATIVE INDEX 1.35 (< OR =4)
[2024-04-17] MEDS ORDERED: PANT40TA29 PO (17:02)
[2024-04-17] MEDS ORDERED: ONDA-282 PO (17:02)
[2024-04-17 17:08] VITALS: BP 142/87; TEMP 97.6
== END 2024-04-17 17:15 | disposition home or self-care (01) ==
LOC: EDBD 14:10 → M ED 14:10
DX: R10.9 Unspecified abdominal pain (principal); R11.10 Vomiting, unspecified; F41.9 Anxiety disorder, unspecified; F17.210 Nicotine dependence, cigarettes, uncomplicated; Z88.0 Allergy status to penicillin; Z88.8 Allergy status to other drugs, medicaments and biological substances; Z91.030 Bee allergy status; Z79.84 Long term (current) use of oral hypoglycemic drugs; Z79.899 Other long term (current) drug therapy
CPT/HCPCS: 74177; 80048; 80076; 82550; 82553; 83690; 84484; 84703; 85025; 93005; 93041; 94760; 96361; 96374; 99285; J2470; Q9967

== ENCOUNTER → 2024-07-17 | Outpatient (REF) | payer OTHER | LOC: M LAB REF 16:35 | PROVIDERS: ATTEND Physician Assistant | DX: R30.0 Dysuria (principal) ==

== ENCOUNTER 2024-09-12 11:43 | Emergency (ER) | payer OTHER ==
[~2024-09-12] VITALS: Ht 162.6 cm; Wt 92.5 kg
[2024-09-12] MEDS ORDERED: ISOVUE-370 76% 100ML VIAL As Ordered ONE (14:52)
[2024-09-12 15:43] LABS: BASO % 0.4 % (0.0-1.0); EOS # 0.2 10^3/uL (0.0-0.5); EOS % 2.5 % (0.0-3.0); HEMATOCRIT 39.2 % (36.0-47.0); HEMOGLOBIN 13.5 g/dl (12.0-15.5); LYMPH # 2.8 10^3/uL (1.5-5.0); LYMPH % 33.5 % (24.0-44.0); MEAN CORPUSCULAR HEMOGLOBIN 31.7 pg (27.0-33.0); MEAN CORPUSCULAR HGB CONC 34.4 g/dl (32.0-36.5); MONO # 0.4 10^3/uL (0.0-0.8); MONO % 4.7 % (2.0-8.0); NEUTROPHILS # 4.9 10^3/uL (1.5-8.5); NEUTROPHILS % 58.5 % (36.0-66.0); PLATELET COUNT, AUTOMATED 340 10^3/uL (150-450); RED BLOOD COUNT 4.26 10^6/uL (4.00-5.40); WHITE BLOOD COUNT 8.3 10^3/uL (4.0-10.0)
[2024-09-12 16:05] LABS: BILIRUBIN,DIRECT 0.1 MG/DL (<0.4); BILIRUBIN,TOTAL 0.5 MG/DL (0.3-1.2); TOTAL PROTEIN 7.7 G/DL (5.7-8.2)
[2024-09-12] MEDS ORDERED: MIRA3350 PO (16:24)
[2024-09-12] MEDS ORDERED: COLA100C5 PO (16:24)
[2024-09-12 16:47] VITALS: BP 148/79; TEMP 98.3; O2SAT 98
== END 2024-09-12 16:54 | disposition home or self-care (01) ==
LOC: M ED 11:43
DX: K60.2 Anal fissure, unspecified (principal); K58.9 Irritable bowel syndrome, unspecified; F17.210 Nicotine dependence, cigarettes, uncomplicated; F10.10 Alcohol abuse, uncomplicated; Z88.0 Allergy status to penicillin; Z88.8 Allergy status to other drugs, medicaments and biological substances; Z91.018 Allergy to other foods; Z91.030 Bee allergy status
CPT/HCPCS: 36415; 74177; 80047; 80076; 83690; 85025; 99284; Q9967

== ENCOUNTER → 2025-04-01 | Outpatient (REF) | payer MEDICAID ==
[~2025-04-01] MED LIST changes: +MIRA3350 PO
[2025-04-01 18:40] LABS: APPEARANCE, URINE HAZY (CLEAR); BACTERIA, URINE AUTO NEGATIVE (NEGATIVE); BILIRUBIN, URINE AUTO NEGATIVE (NEGATIVE); BLOOD, URINE BLOOD NEGATIVE (NEGATIVE); GLUCOSE, URINE (UA) AUTO NEGATIVE (NEGATIVE); KETONE, URINE AUTO NEGATIVE (NEGATIVE); LEUKOCYTE ESTERASE, URINE AUTO NEGATIVE (NEGATIVE); MUCUS, URINE SMALL (NEGATIVE); NITRITE, URINE AUTO NEGATIVE (NEGATIVE); PROTEIN, URINE AUTO NEGATIVE (NEGATIVE); RBC, URINE AUTO 0 /HPF (0-3); SPECIFIC GRAVITY URINE AUTO 1.020 (1.002-1.035); SQUAMOUS EPITHELIAL CELL UR AU 3 /HPF (0-6); UROBILINOGEN, URINE AUTO 0.2 mg/dL (0.0-2.0); WBC, URINE AUTO 1 /HPF (0-3)
== END ==
LOC: M LAB REF 17:59
PROVIDERS: ATTEND Physician Assistant Medical
DX: N39.0 Urinary tract infection, site not specified (principal)